=== PATIENT | male | born 1940 | race Caucasian/White ===

== ENCOUNTER → 2021-12-03 | Day surgery (SDC) | payer MEDICARE, BC ==
[~2021-12-03] MED LIST: Iopamidol 300 61% 100 ML VIAL FS ONE
== END ==
LOC: CSHCT 08:53
PROVIDERS: ATTEND Physician Assistant Medical
DX: R91.8 Other nonspecific abnormal finding of lung field (principal)
CPT/HCPCS: 71260; 82565; Q9967